=== PATIENT | female | born 1980 | race Caucasian/White ===

== ENCOUNTER 2022-10-31 08:05 | Outpatient (CLI) | payer OTHER, SELFPAY | END 2022-10-31 08:06 | disposition home or self-care (01) | LOC: NFLDREF 11-07 12:38 | PROVIDERS: PCP Family Medicine; Referring Provider Family Medicine; Visit Provider Family Medicine | DX: Z00.00 Encounter for general adult medical examination without abnormal findings (principal); N94.10 Unspecified dyspareunia; Z13.6 Encounter for screening for cardiovascular disorders; Z30.9 Encounter for contraceptive management, unspecified | CPT/HCPCS: 80053; 80061 ==

== ENCOUNTER 2024-05-28 15:38 | Outpatient (CLI) | payer OTHER, SELFPAY ==
--- NOTE | 2024-05-28 16:00 | CRLHL7_ITS ---
For Patients: As a result of the Century Cures Act, medical imaging exams and procedure reports are released immediately into your electronic medical record. You may view this report before your referring provider. If you have questions, please contact your health care provider. INDICATION: Four-month history of dyspareunia. COMPARISON: None available. TECHNIQUE: Transabdominal and endovaginal grayscale and color doppler pelvic ultrasound. FINDINGS: LMP: 05/04/2024 Uterus: Retroflexed, measures 6.2 x 5.3 x 9cm. Unremarkable cervix. Please note that US is insensitive for detection of epithelial lesions of the cervix, compared to physical examination. Endometrial stripe: Measures 7mm. Uniform in thickness. Right Ovary: Measures 2.4 x 1.5 x 2.9cm and 6mL. Morphologically normal. Spectral Doppler demonstrates normalarterial and venousblood flow. Left Ovary: Measures 2.3 x 1.4 x 4cm and 7mL. 2 cm left corpus luteum cyst. Spectral Doppler demonstrates normalarterial and venousblood flow. Pelvic fluid: No significant pelvic ascites. IMPRESSION: Retroflexed uterus. No significant lesion of the uterus or ovaries. Dictated by Leonel De La Rosa MD @ 05/30/2024 6:16:49 PM (Electronically Signed)
== END 2024-05-28 15:39 | disposition home or self-care (01) ==
LOC: US 15:39
PROVIDERS: PCP Family Medicine; Visit Provider Obstetrics & Gynecology
DX: N94.10 Unspecified dyspareunia (principal); N85.4 Malposition of uterus
CPT/HCPCS: 76830; 76856

== ENCOUNTER 2024-07-18 16:37 | Emergency (ER) | payer OTHER, SELFPAY ==
[2024-07-18 16:45] VITALS: BP 122/77; PULSE 86; RESP 18; TEMP 36.5; O2SAT 97; BMI 22.6
--- NOTE | 2024-07-18 16:51 | CRLHL7_ITS ---
For Patients: As a result of the Cures Act, medical imaging exams and procedure reports are released immediately into your electronic medical record. You may view this report before your referring provider. If you have questions, please contact your health care provider. INDICATION: Fall. FINDINGS: No bone or joint abnormality is identified. There is no fracture or dislocation. IMPRESSION: Negative study. Dictated by Sigifredo Lui MD @ 07/18/2024 5:36:13 PM (Electronically Signed)
--- NOTE | 2024-07-18 17:12 | ED.UPPEXIN ---
HPI - Extremity Injury (Upper) General Chief Complaint: Extremity Pain/Injury, Upper Stated Complaint: left arm injury Time Seen by Provider: 07/18/24 16:39 History of Present Illness HPI narrative: This 44-year-old female comes in with a left shoulder injury. Just prior to arrival she tripped over her dog and landed hard on her left shoulder. She has an abrasion over the angle of the left shoulder joint. She did not hit her head or have loss of consciousness. She does not report any other injury. Related Data Home Medications ?Medication ?Instructions ?Recorded ?Confirmed multivitamin 1 tab PO QAM 08/17/22 07/18/24 Previous Rx's ?Medication ?Instructions ?Recorded omeprazole magnesium 20 mg 20 mg PO QDAY #90 tabs 01/12/24 tablet,delayed release Allergies Allergy/AdvReac Type Severity Reaction Status Date / Time No Known Drug Allergies Allergy Verified 11/04/22 13:50 Review of Systems Status of ROS: Reports: 10 or more systems reviewed and unremarkable except as noted in History and below Narrative: Constitutional: No fevers, no weight gain or loss. Eyes: No discharge. No vision changes. HENT: No congestion, no sore throat, no ear pain. Cardiovascular: No chest pain, no palpitations. Respiratory: No shortness of breath, no wheezes, no cough. Gastrointestinal: No abdominal pain, no vomiting, no diarrhea. Genitourinary: No dysuria, no hematuria. Musculoskeletal: Left shoulder injury with decreased range of motion due to pain. Skin: No rashes, no pruritis. Neurological: No dizziness, weakness, sensory change, speech change. Endo/Heme/Allergies: No bruising or bleeding. No polydipsia. Pysch: no suicidality, no anxiety, no insomnia. All other systems reviewed and are negative. PFSH PFS Surgical History (Updated 11/04/22 @ 14:09 by Galina Cohen MD) H/O toe surgery ?Z98.890 - Other specified postprocedural states (ICD-10) H/O breast biopsy ?Z98.890 - Other specified postprocedural states (ICD-10) Family History (Updated 11/04/22 @ 14:10 by Galina Cohen MD) Brother Diabetes Mother High blood pressure Father High blood pressure Paternal Grandmother Heart disease Maternal Grandmother Alzheimers disease Social History Smoking Status: Never smoker Exam Narrative: Exam Narrative: Constitutional: Well-developed, well-nourished, no acute distress. HEENT: Normocephalic, atraumatic. Neck: Normal range of motion. Nontender. Supple. Heart: Intact distal pulses. Lungs: No chest discomfort. No wheezes, rhonchi, or rales. Abdomen: Nontender. Back: Normal range of motion. Extremities: Superficial abrasion over the left shoulder joint. No significant swelling and no sign of anterior fullness or deformity. Skin: Intact. No rash. Warm. No erythema or pallor. Neurologic: No altered sensation. No weakness. Alert and oriented. Psychiatric: No suicidality. No anxiety or depression. No insomnia. Nursing notes and vitals signs are reviewed. Const: Vital Signs, click to edit/add: Vital Signs - 24 hr 07/18/24 16:45 Temperature 97.7 F Pulse Rate [Pulse Oximeter] 86 Respiratory Rate 18 Blood Pressure [Ri ght Upper Arm] 122/77 Pulse Oximetry 97 Oxygen Delivery Me thod Room Air Course Vital Signs Vital signs: Initial Vital Signs Temperature 97.7 F 07/18/24 16:45 Temperature Source Temporal Artery Scan 07/18/24 16:45 Pulse Rate 86 07/18/24 16:45 Respiratory Rate 18 07/18/24 16:45 Blood Pressure 122/77 07/18/24 16:45 Blood Pressure Mean 92 07/18/24 16:45 Blood Pressure Position Sitting 07/18/24 16:45 Pulse Oximetry 97 07/18/24 16:45 Oxygen Delivery Method Room Air 07/18/24 16:45 Vital Signs Temperature 97.7 F 07/18/24 16:45 Pulse Rate 86 07/18/24 16:45 Respiratory Rate 18 07/18/24 16:45 Blood Pressure 122/77 07/18/24 16:45 Pulse Oximetry 97 07/18/24 16:45 Oxygen Delivery Method Room Air 07/18/24 16:45 Temperature 97.7 F 07/18/24 16:45 Pulse Rate 86 07/18/24 16:45 Respiratory Rate 18 07/18/24 16:45 Blood Pressure 122/77 07/18/24 16:45 Pulse Oximetry 97 07/18/24 16:45 Oxygen Delivery Method Room Air 11/17/24 16:45 MDM - Extremity Injury (Upper) MDM Narrative Medical decision making narrative: This 44-year-old female comes in with an injury to her left shoulder as described above. X-ray imaging by my review and according to radiology report shows no acute findings. The patient received a sling and [employer] prescriptions for Toradol and a few tablets of [place]. She is encouraged to increase activity as tolerated. Imaging Data XR L Shoulder: Radiologist's impression: Negative study. Discharge Plan Discharge Clinical Impression: Injury of shoulder, left Additional Instructions: Wear sling and take medication as needed. Increase activity as tolerated. Follow up with MD return if worsening. Prescriptions: No Action multivitamin Tablet 1 tab PO QAM omeprazole magnesium 20 mg tablet,delayed release (DR/EC) 20 mg PO QDAY Qty: 90 3RF Follow Up/Referrals: Galina Cohen MD [Primary Care Provider] - Stand Alone Forms: [employer] Info Instructions
== END 2024-07-18 18:18 | disposition home or self-care (01) ==
PROVIDERS: Emergency Provider Emergency Medicine Emergency Medical Services; PCP Family Medicine
DX: M25.512 Pain in left shoulder (principal); W01.0XXA Fall on same level from slipping, tripping and stumbling without subsequent striking against object, initial encounter
CPT/HCPCS: 73030; 99283; 99284